=== PATIENT | female | born 1980 | race Caucasian/White ===

== ENCOUNTER 2018-06-21 18:40 | Emergency (ER) | payer BC ==
[2018-06-21] MEDS ORDERED: NS 1,000 ML IV ONE (18:45)
--- NOTE | 2018-06-21 18:59 | EDPHY ---
H & P Time Seen by Provider: 06/21/18 18:58 HPI/ROS: CHIEF COMPLAINT: Unable to urinate Limitations: Intoxication, agitation; history is through the patient's HISTORY OF PRESENT ILLNESS: 37-year-old female presents with inability to urinate. She was at the [employer] [facility] football game this evening and began to feel the urge to urinate in the 2nd inning. She has a substantial fear of urinating in a public restroom, so she did not urinate. However, the pressure in her bladder gradually increased and by the time the game was over, she was in significant pain. 911 was called by a bystander because the patient' s agitation. Fentanyl 50 mcg IV given prior to arrival. According to her , this has happened in the past and is worse with alcohol. She drank excessive alcohol this afternoon at the football game. REVIEW OF SYSTEMS: complete 10 point ROS reviewed and is negative except for the noted elements in the HPI - Medical/Surgical History Other PMH: Alcoholism. OCD - Physical Exam Exam: General Appearance: Alert, slurred speech, yelling at times Eyes: Pupils equal and round, conjunctival injection ENT, Mouth: Mucous membranes moist Neck: Normal inspection Respiratory: Lungs are clear to auscultation Cardiovascular: Regular rate and rhythm Gastrointestinal: Abdomen is soft, right upper quadrant tenderness Neurological: A&O, nonfocal, normal gait Skin: Warm and dry Extremities: Nontender, no pedal edema Psychiatric: Agitated Constitutional: Initial Vital Signs Temperature (C) 36.6 C 06/21/18 18:45 Heart Rate 94 06/21/18 18:45 Respiratory Rate 18 06/21/18 18:45 Blood Pressure 132/108 H 06/21/18 18:45 O2 Sat (%) 89 L 06/21/18 18:45 O2 Delivery Mode Room Air O2 (L/minute) 2 Allergies/Adverse Reactions: No Known Allergies Allergy (Unverified 06/21/18 19:12) Home Medications: Medication Instructions Recorded Acyclovir 06/21/18 Adderall 10 MG (*) 06/21/18 Medical Decision Making - Diagnostics Imaging Results: Right upper quadrant ultrasound: Fatty liver, normal gallbladder Imaging: Discussed imaging studies w/ server manager Radiologist ED Course/Re-evaluation: This patient presents with lower abdominal pain and alcohol intoxication. On exam she is quite agitated and has right upper quadrant tenderness. I discussed this finding with her . She fell twice b/c of unsteady gait while they were walking back to the car but did not strike her torso. Right upper quadrant ultrasound ordered. Bladder scan reveals 150 mL of urine in the bladder. Patient up to the bathroom, but unable to urinate. Ativan 1 mg IV given for agitation. Will observe. 8:00 p.m.-sleeping comfortably with eyes closed. Still unable to obtain a clinical history from the patient. Discussed with the at length. Patient has a long history of alcoholism and has refused help in the past. 8:45 p.m.-drowsy, but able to talk with me. Complains of right upper quadrant pain, now much improved overall. Ultrasound results discussed with the patient , fatty liver, no cholelithiasis. Abdomen remains benign. Toradol 15 mg IV given. Will discharge home with . Abdominal pain precautions given. Differential Diagnosis: Differential diagnosis includes though it is not limited to appendicitis, cholecystitis, diverticulitis, pyelonephritis, bowel perforation, small bowel obstruction. - Data Points Laboratory Results: Laboratory Results 06/21/18 18:48 06/21/18 18:48 06/21/18 06/21/18 18:48 18:48 WBC 8.25 10^3/uL 10^3/uL (3.80-9.50) RBC 4.88 10^6/uL 10^6/uL (4.18-5.33) Hgb 16.7 g/dL H g/dL (12.6-16.3) Hct 47.1 % H % (38.0-47.0) MCV 96.5 fL fL (81.5-99.8) MCH 34.2 pg H pg (27.9-34.1) MCHC 35.5 g/dL g/dL (32.4-36.7) RDW 11.5 % % (11.5-15.2) Plt Count 357 10^3/uL 10^3/uL (150-400) MPV 9.6 fL fL (8.7-11.7) Neut % (Auto) 50.9 % % (39.3-74.2) Lymph % (Auto) 42.4 % % (15.0-45.0) Gulf % (Auto) 3.8 % L % (4.5-13.0) Eos % (Auto) 1.0 % % (0.6-7.6) Baso % (Auto) 1.7 % % (0.3-1.7) Nucleat RBC Rel Count 0.0 % % (0.0-0.2) Absolute Neuts (auto) 4.20 10^3/uL 10^3/uL (1.70-6.50) Absolute Lymphs (auto) 3.50 10^3/uL H 10^3/uL (1.00-3.00) Absolute Monos (auto) 0.31 10^3/uL 10^3/uL (0.30-0.80) Absolute Eos (auto) 0.08 10^3/uL 10^3/uL (0.03-0.40) Absolute Basos (auto) 0.14 10^3/uL H 10^3/uL (0.02-0.10) Absolute Nucleated RBC 0.00 10^3/uL 10^3/uL (0-0.01) Immature Gran % 0.2 % % (0.0-1.1) Immature Gran # 0.02 10^3/uL 10^3/uL (0.00-0.10) Sodium 140 mEq/L mEq/L (135-145) Potassium 3.8 mEq/L mEq/L (3.3-5.0) Chloride 102 mEq/L mEq/L (97-110) Carbon Dioxide 13 mEq/l L mEq/l (22-31) Anion Gap 25 mEq/L H mEq/L (8-16) BUN 11 mg/dL mg/dL (7-23) Creatinine 1.7 mg/dL H mg/dL (0.6-1.0) Estimated GFR 34 Glucose 123 mg/dL H mg/dL (70-100) Calcium 9.6 mg/dL mg/dL (8.5-10.4) Total Bilirubin 1.4 mg/dL mg/dL (0.1-1.4) Conjugated Bilirubin 0.6 mg/dL H mg/dL (0.0-0.5) Unconjugated Bilirubin 0.8 mg/dL mg/dL (0.0-1.1) AST 244 IU/L H IU/L (14-46) ALT 194 IU/L H IU/L (9-52) Alkaline Phosphatase 104 IU/L IU/L (38-126) Total Protein 9.5 g/dL H g/dL (6.3-8.2) Albumin 5.3 g/dL H g/dL (3.5-5.0) Lipase 99 IU/L IU/L (23-300) Specimen Hemolysis 105 Ethyl Alcohol 354 mg/dL H mg/dL (0-10) Medications Given: Discontinued Medications Sodium Chloride (Ns) 1,000 mls @ 0 mls/hr IV EDNOW ONE; Wide Open PRN Reason: Protocol Stop: 06/21/18 18:46 Last Admin: 06/21/18 19:00 Dose: 1,000 mls Lorazepam (Ativan Injection) 1 mg IVP EDNOW ONE Stop: 06/21/18 19:07 Last Admin: 06/21/18 19:18 Dose: 1 mg Departure - Departure Clinical Impression: Alcohol intoxication Qualifiers: Complication of substance-induced condition: uncomplicated Qualified Code(s): F10.920 - Alcohol use, unspecified with intoxication, uncomplicated Abdominal pain Qualifiers: Abdominal location: right upper quadrant Qualified Code(s): R10.11 - Right upper quadrant pain Condition: Good Instructions: Alcohol Intoxication (ED), Acute Abdominal Pain (ED) Additional Instructions: Sometimes we are unable to diagnose an obvious cause of abdominal pain in the Emergency Department. Based upon our evaluation today, we see no obvious explanation for your pain. Because more serious conditions can be difficult to diagnose early in the course of their presentation, we ask that you return to the Emergency Department in 12-24 hours for a recheck if you are still having pain. This is necessary to exclude the development of a more serious condition such as appendicitis or other intra-abdominal emergency. In the event your pain markedly increases before that time or you develop intractable vomiting or fever return to the Emergency Department immediately. Referrals: Kellie Balderrama MD [[facility] Primary Care Provider] - As per Instructions
[2018-06-21] MEDS ORDERED: LORazepam 2 MG/ML INJ IVP ONE (19:06)
[2018-06-21 19:07] LABS: PLATELET COUNT 357 10^3/uL (150-400)
[2018-06-21] MEDS ORDERED: LORazepam 2 MG/ML INJ ONE (19:07)
[2018-06-21] MEDS ORDERED: KETOROLAC 15 MG/1 ML SDV IVP ONE (20:44)
[2018-06-21 21:15] VITALS: BP 145/98
== END 2018-06-21 21:23 | disposition home or self-care (01) ==
DX: R10.11 Right upper quadrant pain (principal); F10.920 Alcohol use, unspecified with intoxication, uncomplicated; E86.9 Volume depletion, unspecified; Y90.8 Blood alcohol level of 240 mg/100 ml or more
CPT/HCPCS: 96374; G0480; J1885; J2060